=== PATIENT | male | born 1985 | race Caucasian/White ===

== ENCOUNTER 2023-05-07 16:28 | Outpatient (OUT) | payer OTHER, SELFPAY ==
[2023-05-07 17:11] LABS: Basophils Absolute Auto 0.1 10^3/uL (0.0-0.1); Basophils Percent Auto 0.8 % (0.2-2.0); Eosinophils Absolute Auto 0.2 10^3/uL (0.0-0.7); Eosinophils Percent Auto 2.9 % (0.9-7.0); Hematocrit 43.7 % (42.0-54.0); Hemoglobin 15.1 g/dL (14.0-18.0); Immature Granulocytes Abs Auto 0.01 10^3/uL (0.00-0.03); Immature Granulocytes Pct Auto 0.2 % (0.0-0.5); Lymphocytes Absolute Auto 2.4 10^3/uL (1.2-3.8); Lymphocytes Percent Auto 40.4 % (20.5-60.0); Mean Corpuscular HGB Conc 34.6 g/dL (29.9-35.2); Mean Corpuscular Hemoglobin 30.3 pg (25.9-34.0); Mean Corpuscular Volume 87.6 fL (80.0-94.0); Mean Platelet Volume 9.7 fL (9.5-13.5); Monocytes Absolute Auto 0.5 10^3/uL (0.3-0.8); Monocytes Percent Auto 7.7 % (1.7-12.0); Neutrophils Absolute Auto 2.9 10^3/uL (1.4-6.5); Platelet Count 245 10^3/uL (150-450); Red Blood Count 4.99 10^6/uL (4.70-6.10); Red Cell Distribution Width 12.6 % (11.0-15.0)
[2023-05-07 18:29] LABS: Alanine Aminotransferase 48 U/L (16-63); Albumin Level 3.7 g/dL (3.4-5.0); Alkaline Phosphatase 52 U/L (46-116); Anion Gap 11.5; Aspartate Amino Transferase 23 U/L (15-37); BUN Creatinine Ratio 15.2; Bilirubin Total 0.8 mg/dL (0.2-1.0); Calcium 9.1 mg/dL (8.5-10.1); Carbon Dioxide 26.4 mmol/L (21.0-32.0); Chloride 105 mmol/L (98-107); Chol HDL Ratio 3.6; Cholesterol 183 mg/dL (<=200); Estimated GFR (African America >60 (>=60); Estimated GFR (Non-African Ame >60 (>=60); Globulin 3.7 g/dL; Glucose 84 mg/dL (74-106); HDL Cholesterol 51 mg/dL (40-60); LDL Cholesterol Calculated 118.4 mg/dL; Potassium 3.9 mmol/L (3.5-5.1); Sodium 139 mmol/L (136-145); Thyroid Stimulating Hormone 1.581 uIU/mL (0.358-3.740); Total Protein 7.4 g/dL (6.4-8.2); Triglycerides 68 mg/dL (<=150); VLDL CHOLESTEROL 13.6 mg/dL
[2023-05-17 00:07] LABS: Free Testosterone(Direct) 7.4 pg/mL (8.7-25.1); Testosterone 416 ng/dL (264-916)
== END 2023-05-07 16:29 | disposition home or self-care (01) ==
LOC: LAB 16:31
PROVIDERS: Family Provider Family Medicine; PCP Family Medicine; Visit Provider Family Medicine
DX: R53.82 Chronic fatigue, unspecified (principal); E55.9 Vitamin D deficiency, unspecified; Z13.6 Encounter for screening for cardiovascular disorders
CPT/HCPCS: 36415; 80053; 80061; 82306; 82607; 84402; 84403; 84443; 85025

== ENCOUNTER 2024-09-04 12:50 | Outpatient (OUT) | payer OTHER, SELFPAY ==
--- NOTE | 2024-09-04 12:57 | US_ITS ---
[address] [address] Patient Name: JENIFFER CASAS MRN: [id number] date: 1985 Sex: M Assigned Patient Location: Current Patient Location: Accession/Order Number: [id number] Exam Date: 09/04/2024 13:42 Report Date: 09/04/2024 13:51 At the request of: PAIGE MEJÍA Procedure: US scrotum EXAMINATION TYPE: US scrotum grayscale, color Doppler, waveform duplex analysis was performed. DATE OF EXAM ORDERED: 09/04/2024 1:24 PM HISTORY: swelling of left testicle N50.89, COMPARISON: NONE TECHNIQUE: Realtime imaging of the scrotum was performed. Singer scale, color Doppler and spectral Doppler imaging of the testicles was performed. FINDINGS: Testicles: Both testicles demonstrate homogeneous echotexture without intratesticular filling defect. Right measurements: 4.5 x 2.8 x 3.3 cm. Left measurements: 5.4 x 2.6 x 3.1 cm Epididymis: There is an anechoic cyst 3 mm cyst along the left epididymal head Right measurements: 0.72 cm Left measurements: 1.23 cm Hydrocele: Small bilateral hydroceles are present. This is more pronounced on the right the left.. Doppler ultrasound of the testicles: Arterial and venous waveforms are seen within both testicles. No sonographic evidence of testicular ischemia. US/US scrotum IMPRESSION: 1. The testicles are normal in size and echogenicity. No intratesticular lesions. 2. No sonographic evidence of testicular ischemia. 3. Right greater than left. 4. There is a small left epididymal head cyst measuring 3 mm in greatest dimension. Impression dictated by: Jerry Singer M.D. 09/04/2024 1:51 PM Dictation Location: [place] [address] Electronically authenticated by: [id number] Y Date: 09/04/2024 13:51
--- OUTSIDE RECORDS SUMMARY | 2024-09-04 13:08 | XMS_ITS | CCD ---
Author Organization [facility] Care Team Providers Care Manager Primary Care Name Role Phone DONNELL, AFTAB M Unavailable Unavailable DONNELL, AFTAB M Unavailable Unavailable DONNELL, AFTAB M Unavailable Unavailable Donnell, Aftab Unavailable Penny Yuan Unavailable AFTAB JACOBO Primary Care Physician MD Prakash Iraheta Attending Provider Donnell DO Aftab Guy. Primary Care Provider MD Alon Montoya Attending Provider Prakash Iraheta Attending Unavailable Prakash Iraheta Admitting Unavailable Alon Montoya Admitting Unavailable Alon Montoya Attending Unavailable Aftab Jacobo. Primary Care Unavailable CRESCENCIO BERMAN Attending Unavailab le Allergies Allergy Classification Reported Allergen(s) Allergy Type Date of Onset Reaction(s) Facility (20 sources) Sulfamethoxazole / Trimethoprim; Translations: [sulfamethoxazole-tr imethoprim] Drug Allergy rash, Eruption of skin (disorder) [facility] (7 sources) Sulfamethoxazole; Translations: [sulfamethoxazole] Drug Allergy [facility] (7 sources) Trimethoprim; Translations: [trimethoprim] Drug Allergy [facility] (1 source) Sulfamethoxazole / Trimethoprim; Translations: [sulfamethoxazole-tr imethoprim] Drug Allergy [facility] Medications Current Medications Medication Drug Class(es) Dates Sig (Normalized) Sig (Original) amoxicillin 500 mg oral capsule (2 sources) Penicillin-class Antibacterial Start: 06-07-2022 take 1 capsule by mouth every eight hours Amoxicillin 500 MG 1 capsule Orally three times a day for 10 day(s) May, Active amoxicillin 875 mg / clavulanate 125 mg oral tablet (3 sources) Penicillin-class Antibacterial Start: 04-05-2016 take 1 tablet by mouth every twelve hours Amoxicillin-Pot Clavulanate 875-125 MG 1 tablet Orally every 12 hrs for 10 day(s) Apr, Active betamethasone 0.5 mg/ml / clotrimazole 10 mg/ml topical lotion (1 source) Azole Antifungal, Corticosteroid Start: 07-25-2021 Clotrimazole-Betame thasone 1-0.05 % 1 application Externally Twice a day for 14 days Jul, Active 24 hr buPROPion hydrochloride 150 mg extended release oral tablet (7 sources) Aminoketone Start: 11-30-2022 take 1 tablet by mouth every twenty-four hours buPROPion HCl ER (XL) 150 MG 1 tablet in the morning Orally Once a day for 30 days Oct, Active cephalexin 500 mg oral capsule (1 source) Cephalosporin Antibacterial Start: 10-16-2022 End: 10-21-2022 take 1 capsule by mouth twice daily at mealtime Keflex 500 mg Cap 500 mg = 1 cap(s), Oral, BID, start with first meal after procedure, X 5 day(s), # 10 cap(s), Refills(s) 0, Pharmacy: [facility]/pharmacy #[id number], 193, cm, 10/16/22 14:19:00 EDT, Height/Length Dosing, 127, kg, 10/16/22 14:19:00 EDT, Weight Dosing Start Date: 10/16/22 Stop Date: 10/21/22 Status: Ordered cholecalciferol 1.25 mg oral capsule (13 sources) Vitamin D Start: 07-16-2024 End: 08-01-2024 take 1 capsule by mouth every week Cholecalciferol (Vitamin D3) 1,250 mcg (50,000 unit) capsule Active 04070 UNIT PO every week August 01, 2024 9:01am Start: 01-31-2024 End: 07-16-2024 take 1 capsule by mouth every week Cholecalciferol (Vitamin D3) 1,250 mcg (50,000 unit) capsule Discontinued 1250 MCG PO every week January 31, 2024 2:40pm July 16, 2024 7:59am Start: 10-30-2023 End: 01-31-2024 take 1 capsule by mouth every week Cholecalciferol (Vitamin D3) 1,250 mcg (50,000 unit) capsule Discontinued 0 .ROUTE .COMPLEX October 30, 2023 10:46am January 31, 2024 2:41pm TAKE 1 CAPSULE BY MOUTH EVERY WEEK Start: 10-30-2023 End: 01-31-2024 take 1 capsule by mouth every week Cholecalciferol (Vitamin D3) Discontinued 0 .ROUTE .COMPLEX October 30, 2023 10:46am January 31, 2024 2:41pm TAKE 1 CAPSULE BY MOUTH EVERY WEEK Start: 05-17-2023 End: 10-30-2023 take 1 capsule by mouth every week Cholecalciferol (Vitamin D3) 1,250 mcg (50,000 unit) capsule Discontinued 1250 MCG PO every week 08 29May 17, 2023 1:00am October 30, 2023 10:46am DULoxetine 20 mg delayed release oral capsule (3 sources) Serotonin and Norepinephrine Reuptake Inhibitor Start: 08-01-2024 take 1 capsule by mouth once daily Duloxetine 20 mg capsule,delayed release(DR/EC) Active 20 MG PO Daily August 01, 2024 9:01am Start: 04-22-2024 End: 08-01-2024 take 1 capsule by mouth once daily Duloxetine 20 mg capsule,delayed release(DR/EC) Discontinued 0 .ROUTE .COMPLEX April 22, 2024 5:39pm August 01, 2024 9:02am TAKE 1 CAPSULE BY MOUTH EVERY DAY Start: 03-31-2024 End: 04-22-2024 take 1 capsule by mouth once daily Duloxetine 20 mg capsule,delayed release(DR/EC) Discontinued 20 MG PO Daily March 31, 2024 1:00am April 22, 2024 5:39pm meloxicam 15 mg oral tablet (1 source) Nonsteroidal Anti-inflammatory Drug take 1 tablet by mouth every twenty-four hours Meloxicam 15 MG 1 tablet Orally Once a day Active Omeprazole (18 sources) Proton Pump Inhibitor Start: 023 omeprazole Oral, Daily, Refills(s) 0 Start Date: 10/16/22 Status: Ordered take 1 tablet by mouth once conchis y PriLOSEC OTC 20 MG 1 tablet 30 minutes before morning meal Orally Once a day Active take 1 tablet by mouth once conchis y PriLOSEC OTC 20 MG 1 tablet 30 minutes before morning meal Orally Once a day Active Omeprazole Magnesium (Prilosec Otc) 20 mg tablet,delayed release (DR/EC) (6 sources) Start: 05-29-2023 take 1 tablet by mouth once daily Omeprazole Magnesium (Prilosec Otc) 20 mg tablet,delayed release (DR/EC) Active 20 MG PO Daily May 29, 2023 1:00am Sudafed Cold/Cough (1 source) Sudafed Cold/Cou gh Active Completed/Discontinued Medications Medication Drug Class(es) Dates Sig (Normalized) Sig (Original) escitalopram 10 mg oral tablet (20 sources) Serotonin Reuptake Inhibitor Start: 01-31-2024 End: 08-01-2024 take 1 tablet by mouth once daily Escitalopram Oxalate 10 mg tablet Discontinued 10 MG PO Daily January 31, 2024 2:41pm August 01, 2024 9:02am Start: 01-04-2024 End: 01-31-2024 take 1 tablet by mouth once daily Escitalopram Oxalate 10 mg tablet Discontinued 0 .ROUTE .COMPLEX January 04, 2024 11:08am January 31, 2024 2:41pm TAKE 1 TABLET BY MOUTH EVERY DAY Start: 08-29-2023 End: 01-04-2024 take 1 tablet by mouth once daily Escitalopram Oxalate 10 mg tablet Discontinued 10 MG PO Daily August 29, 2023 12:00am January 04, 2024 11:08am Start: 05-29-2023 End: 08-29-2023 take 1 tablet by mouth once daily Escitalopram Oxalate 20 mg tablet Discontinued 20 MG PO Daily May 29, 2023 2:53pm August 29, 2023 2:27pm Start: 01-05-2023 escitalopram 5 mg oral tablet Refills(s) 0 Start Date: 01/05/23 Status: Ordered Start: 11-02-2022 take 1 tablet by ronald th every twenty-four hours Escitalopram Oxalate 10 MG 1 tablet Orally Once a day for 30 days Oct, Active Start: 11-02-2022 take 1 tablet by ronald th every twenty-four hours Escitalopram Oxalate 5 MG 1 tablet Orally Once a day for 30 days Oct, Active take 1 tablet by ronald th every twenty-four hours Escitalopram Oxalate 20 MG 1 tablet Orally Once a day for 30 days Active Triamcinolone (20 sources) Corticosteroid Start: 10-27-2019 Kenalog -40 mg Sep, 80 mg Start: 11-21-2018 Kenalog -40 mg Oct, 80 mg Start: 09-24-2018 KENALOG - 10 m g Aug, 80 mg Problems Active Problems Problem Classification Problem Date Documented Date Episodic/Chronic Contraceptive and procreative management (1 source) Contraception status; Translations: [Encounter for other general counseling and advice on contraception] Onset: 10-16-2022 Episodic Esophageal disorders (11 sources) Gastroesophageal reflux disease without esophagitis; Translations: [Gastro-esophageal reflux disease without esophagitis] 07-19-2023 Chronic Immunizations and screening for infectious disease (1 source) Contact with and (suspected) exposure to other viral communicable diseases Episodic Malaise and fatigue (4 sources) Fatigue; Translations: [Chronic fatigue, unspecified] Chronic Miscellaneous mental health disorders (12 sources) 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; Translations: [Excessive sexual drive] Chronic Mood disorders (20 sources) Reactive depression (situational); Translations: [Major depressive disorder, single episode, unspecified] Chronic Nutritional deficiencies (10 sources) Vitamin D deficiency; Translations: [Vitamin D deficiency, unspecified] Chronic Other disorders of stomach and duodenum (3 sources) Indigestion 10-16-2022 Episodic Other nervous system disorders (5 sources) Circadian rhythm sleep disorder of shift work type; Translations: [Circadian rhythm sleep disorder, shift work type] 07-19-2023 Chronic Other nervous system disorders (4 sources) Circadian rhythm sleep disorder, shift work type; Translations: [Circadian rhythm sleep disorder, shift work type] 07-19-2023 Chronic Other nutritional; endocrine; and metabolic disorders (1 source) Body mass index 30+ - obesity 07-19-2023 Chronic Other upper respiratory infections (4 sources) Acute sinusitis, unspecified; Translations: [Streptococcal pharyngitis] Onset: 02-21-2021 Resolved: 02-21-2021 Episodic Residual codes; unclassified (7 sources) Sleep apnea, unspecified; Translations: [Unspecified sleep apnea] Onset: 07-26-2023 07-19-2023 Chronic Unclassified (5 sources) Encounter for screening for diabetes mellitus; Translations: [Encounter for screening for cardiovascular disorders] Onset: 01-23-2017 Episodic Unclassified (3 sources) Patient encounter status 10-16-2022 Unclassified (11 sources) Body mass index 30+ - obesity; Translations: [Body mass index (BMI) greater than 35] 07-19-2023 Unclassified (1 source) Encounter for other general counseling and advice on contraception; Translations: [Encounter for other general counseling and advice on contraception] Onset: 12-22-2022 Past or Other Problems Problem Classification Problem Date Documented Da te Episodic/Chronic Mycoses (1 source) Tinea pedis Onset: 07-25-2021 Resolved: 07-25-2021 Episodic Results Test Name Value Interpretation Reference Range Facility SPERM ANALYSISOrdered By: Owen Retana on 06-28-2023 Body temperature 75.2 [degF] Normal 20 - 37 DegC [facility] Inga/Transport Prob No Problems (06/28/23 8:00 AM) Normal [facility] Collect. Meth Masturbation (06/28/23 8:00 AM) Normal [facility] Days Abstained 4 day(s) Normal 2 - 5 day(s) [facility] Post Vas Screen No Sperm Seen 1 (06/28/23 8:00 AM) Normal <=0 [facility] Comment on above: Interpretive Data: A Concentration Technique is used to confirm any semen which is azospermic (no sperm seen). Spec. Container Steril Container (06/28/23 8:00 AM) Normal [facility] SS Free testosterone measuremen t by LC-MS/MSon 05-07-2023 Testosterone Free [Mass/Vol] 7.4 pg/mL 8.7-25.1 [facility] Comment on above: Performed at: [facility] [address] [address] [id number] Director: Daniel Chinchilla PhD, Phone: [phone] at: [facility] [employer] [id number] Director: Zoltan Castro MD, Phone: [phone] No Panel Informationon 05-07 Testosterone Level 416 ng/dL [id number] [facility] Comment on above: Adult male reference interval is based on a population ofhealthy nonobese males (BMI <30) between 19 and 39 yearsold. [email or web address] Gallego.al. JCEM 2017,102;[id number]. PMID:[id number]. Imer 12-22-2022 L -- Specimen: [id number] Received: 12/22/22 Status: MAKENNA Chiangkarina Num: [id number] Spec Type: Surgical Subm Dr: Prakash Iraheta MD Tissues: A VAS DEFERENS - sterilization (LT VAS) B VAS DEFERENS - sterilization (RT VAS) Procedures: Donavan BINGHAM/Eliana L2/2 -- Age/ Patient Sex Location Account Attending Physician -- Raúl Bullock/Malena SANTIAGO [id number] Prakash Iraheta MD -- SPEC NUM: [id number] RECD: 12/22/22 STATUS: MAKENNA MAGAÑA NUM: [id number] INGA: 12/22/22 [facility] DR: Prakash Iraheta MD ENTERED: 12/22/[address] [facility] [address]: [facility] SPEC TYPE: Surgical DEPT: S ENTERED BY: [id number] RECV BY: [id number] ORDERED: HE/2, Gross/Micro L2/2 ORDERED: HE/2, Gross/Micro L2/2 Pathological Diagnosis A. Left vas deferens segment, vasectomy: - Segmental portion of vas deferens with complete cross sections, and without any other specific change observed B. Right vas deferens segment, vasectomy: - Segmental portion of vas deferens with complete cross sections, and without any other specific change observed Clinical Information Sterilization Gross Description A. Received in formalin labeled with the patient's name, date of and left vas deferens segment is a 1.5 x 0.3 cm ren-mendoza tubular tissue with a pinpoint lumen on cut section. Entirely submitted in one cassette labeled A1. B. Received in formalin labeled with the patient's name, date of and right vas deferens segment is a 0.7 x 0.2 cm ren-pink tubular tissue with a pinpoint lumen on cut section. Entirely submitted in one cassette labeled B1. -- Specimen: [id number] Received: 12/22/22 Status: MAKENNA Chiangkarina Num: [id number] Spec Type: Surgical Subm Dr: Prakash Iraheta MD Tissues: A VAS DEFERENS - sterilization (LT VAS) B VAS DEFERENS - sterilization (RT VAS) Procedures: Donavan BINGHAM/Eliana L2/2 -- Patient: Raúl Bullock [id number] (Continued) -- Specimen: [id number] Received: 12/22/22 (Continued) Signed (signatu re on file) Luis Fernando Woody MD 12/25/22 1505 -- Specimen: [id number] Received: 12/22/22 Status: MAKENNA Magaña Num: [id number] Spec Type: Surgical Subm Dr: Prakash Iraheta MD Tissues: A VAS DEFERENS - sterilization (LT VAS) B VAS DEFERENS - sterilization (RT VAS) Procedures: Donavan BINGHAM/Eliana L2/2 -- Patient: Raúl Bullock [id number] (Continued) -- Specimen: [id number] Received: 12/22/22 (Continued) Microscopic Description A. One H E slide reviewed. The microscopic examination confirms the diagnosis. B. One H E slide reviewed. The microscopic examination confirms the diagnosis. CPT Codes 73791l8 -- -- Specimen: [id number] Received: 12/22/22 Status: MAKENNA Magaña Num: [id number] Spec Type: Surgical Subm Dr: Prakash Iraheta MD Tissues: A VAS DEFERENS - sterilization (LT VAS) B VAS DEFERENS - sterilization (RT VAS) Procedures: HE/2, Gross/Micro L2/2 -- Patient: Raúl Blulock [id number] (Continued) -- Signed (signatu re on file) Chin-Dilan Woody MD 12/25/22 1505 Normal [facility] COVID/FLU/RSV RT-PCRon 06-07 SARS-CoV-2 (COVID-19) RNA SILVANA+probe Ql (Unsp spec) Negative [facility] Other COVID/FLU/RSV RT-PCR Negative Nort [facility] Other [facility] Strepon 06-07-2022 S. pyogenes Org specific cx Ql (Throat) Positive [facility] Other Quick Strep [facility] Other GLUCOSE BLOODon 01-23-2017 Glucose mass conc 101 mg/dL Normal 74-106 [facility] Comment on above: Performed By: #### G JB ####[facility] [id number] Vital Signs Date Time Vital Sign Value Performing Clinician Facility 08-01-2024 09:00-0400 Body height 193.04 cm [facility] 08-01-2024 09:00-0400 Body mass index (BMI) [Ratio] 36.5 kg/m2 [facility] 08-01-2024 09:00-0400 Body temperature 97.7 [degF] [facility] 08-01-2024 09:00-0400 Body weight 136.07 kg [facility] 08-01-2024 09:00-0400 Diastolic blood pressure 72 mm[Hg] [facility] 08-01-2024 09:00-0400 Heart rate 65 /min [facility] 08-01-2024 09:00-0400 Respiratory rate 18 /min [facility] 08-01-2024 09:00-0400 SaO2% (BldA) [Mass fraction] 97 % [facility] 08-01-2024 09:00-0400 Systolic blood pressure 118 mm[Hg] [facility] 02-01-2024 08:29-0400 Body height 193.04 cm [facility] 02-01-2024 08:29-0400 Body mass index (BMI) [Ratio] 36.6 kg/m2 [facility] 02-01-2024 08:29-0400 Body temperature 98.2 [degF] [facility] 02-01-2024 08:29-0400 Body weight 136.53 kg [facility] 02-01-2024 08:29-0400 Diastolic blood pressure 78 mm[Hg] [facility] 02-01-2024 08:29-0400 Heart rate 72 /min [facility] 02-01-2024 08:29-0400 SaO2% (BldA) [Mass fraction] 98 % [facility] 02-01-2024 08:29-0400 Systolic blood pressure 110 mm[Hg] [facility] 11-29-2023 15:59-0400 Body height 193.04 cm [facility] 11-29-2023 15:59-0400 Body mass index (BMI) [Ratio] 36.1 kg/m2 [facility] 11-29-2023 15:59-0400 Body weight 134.71 kg [facility] 11-29-2023 15:59-0400 Diastolic blood pressure 73 mm[Hg] [facility] 11-29-2023 15:59-0400 Heart rate 65 /min [facility] 11-29-2023 15:59-0400 SaO2% (BldA) [Mass fraction] 97 % [facility] 11-29-2023 15:59-0400 Systolic blood pressure 112 mm[Hg] [facility] 08-03-2023 08:56-0400 Body height 193.04 cm DO Aftab Donnell Work Phone: [facility] 08-03-2023 08:56-0400 Body mass index (BMI) [Ratio] 34.7 kg/m2 DO Aftab Donnell Work Phone: [facility] 08-03-2023 08:56-0400 Body temperature 97 [degF] DO Aftab Donnell Work Phone: [facility] 08-03-2023 08:56-0400 Body weight 129.27 kg DO Aftab Donnell Work Phone: [facility] 08-03-2023 08:56-0400 Diastolic blood pressure 70 mm[Hg] DO Aftab Donnell Work Phone: [facility] 08-03-2023 08:56-0400 Heart rate 71 /min DO Aftab Donnell Work Phone: [facility] 08-03-2023 08:56-0400 Respiratory rate 16 /min DO Aftab Donnell Work Phone: [facility] 08-03-2023 08:56-0400 SaO2% (BldA) [Mass fraction] 98 % DO Aftab Donnell Work Phone: [facility] 08-03-2023 08:56-0400 Systolic blood pressure 110 mm[Hg] DO Aftab Donnell Work Phone: [facility] 07-19-2023 15:44-0400 Body mass index (BMI) [Ratio] 35.2 kg/m2 [facility] 07-19-2023 15:44-0400 Body weight 131.08 kg [facility] 07-19-2023 15:44-0400 Diastolic blood pressure 75 mm[Hg] [facility] 07-19-2023 15:44-0400 Heart rate 68 /min [facility] 07-19-2023 15:44-0400 SaO2% (BldA) [Mass fraction] 99 % [facility] 07-19-2023 15:44-0400 Systolic blood pressure 110 mm[Hg] [facility] 07-19-2023 15:35-0400 Body height 193.04 cm [facility] 05-04-2023 10:45-0500 Body height 193.04 cm Aftab Donnell Other [facility] 05-04-2023 10:45-0500 Body mass index (BMI) [Ratio] 35.42 kg/m2 Aftab Donnell Other [facility] Other 05-04-2023 10:45-0500 Body temperature 97.6 [degF] Aftab Donnell Other [facility] Other 05-04-2023 10:45-0500 Body weight 132 kg Aftab Donnell Other [facility] Other 05-04-2023 10:45-0500 Body weight 131.99 kg [facility] 05-04-2023 10:45-0500 Diastolic blood pressure 68 mm[Hg] Aftab Donnell Other [facility] 05-04-2023 10:45-0500 Respiratory rate 20 /min Aftab Donnell Other [facility] Other 05-04-2023 10:45-0500 SaO2% (BldA) [Mass fraction] 97 % Aftab Donnell Other [facility] Other 05-04-2023 10:45-0500 Systolic blood pressure 102 mm[Hg] Aftab Donnell Other [facility] 11-30-2022 14:15-0400 Body height 193.04 cm Aftab Donnell Other [facility] Other 11-30-2022 14:15-0400 Body mass index (BMI) [Ratio] 34.08 kg/m2 Aftab Donnell Other [facility] Other 11-30-2022 14:15-0400 Body temperature 97.5 [degF] Aftab Donnell Other [facility] Other 11-30-2022 14:15-0400 Body weight 127.01 kg Aftab Donnell Other [facility] Other 11-30-2022 14:15-0400 Diastolic blood pressure 82 mm[Hg] Aftab Donnell Other [facility] Other 11-30-2022 14:15-0400 Respiratory rate 20 /min Aftab Donnell Other [facility] Other 11-30-2022 14:15-0400 SaO2% (BldA) [Mass fraction] 97 % Aftab Donnell Other [facility] Other 11-30-2022 14:15-0400 Systolic blood pressure 102 mm[Hg] Aftab Donnell Other [facility] Other 11-02-2022 14:15-0400 Body height 193.04 cm Aftab Donnell Other [facility] Other 11-02-2022 14:15-0400 Body mass index (BMI) [Ratio] 33.47 kg/m2 Aftab Donnell Other [facility] Other 11-02-2022 14:15-0400 Body temperature 97.6 [degF] Aftab Donnell Other [facility] Other 11-02-2022 14:15-0400 Body weight 124.74 kg Aftab Donnell Other [facility] Other 11-02-2022 14:15-0400 Diastolic blood pressure 58 mm[Hg] Aftab Donnell Other [facility] Other 11-02-2022 14:15-0400 Respiratory rate 20 /min Aftab Donnell Other [facility] Other 11-02-2022 14:15-0400 SaO2% (BldA) [Mass fraction] 97 % Aftab Donnell Other [facility] Other 11-02-2022 14:15-0400 Systolic blood pressure 98 mm[Hg] Aftab Donnell Other [facility] Other 10-16-2022 14:17-0400 Blood Pressure Location Prakash IRAHETA [facility] 10-16-2022 14:17-0400 Diastolic blood pressure 80 mm[Hg] Prakash IRAHETA [facility] 10-16-2022 14:17-0400 Heart rate 82 /min Prakash IRAHETA [facility] 10-16-2022 14:17-0400 Respiratory rate 16 /min Prakash IRAHETA [facility] 10-16-2022 14:17-0400 Systolic blood pressure 130 mm[Hg] Prakash IRAHETA [facility] 06-07-2022 17:30-0500 Body height 193.04 cm Penny Nicholsonmond Other [facility] Other 06-07-2022 17:30-0500 Body mass index (BMI) [Ratio] 34.08 kg/m2 Epnny Lissy Other [facility] Other 06-07-2022 17:30-0500 Body temperature 98.3 [degF] Penny Lissy Other [facility] Other 06-07-2022 17:30-0500 Body weight 127.01 kg Penny Nicholsonmond Other [facility] Other 06-07-2022 17:30-0500 Respiratory rate 18 /min Penny Nicholsonmond Other [facility] Other 06-07-2022 17:30-0500 SaO2% (BldA) [Mass fraction] 99 % Penny Lissy Other [facility] Other 02-27-2022 17:45-0500 Body height 193.04 cm Aftab Donnell Other [facility] Other 02-27-2022 17:45-0500 Body mass index (BMI) [Ratio] 32.98 kg/m2 Aftab Donnell Other [facility] Other 02-27-2022 17:45-0500 Body temperature 98.1 [degF] Aftab Donnell Other [facility] Other 02-27-2022 17:45-0500 Body weight 122.93 kg Aftab Donnell Other [facility] Other 02-27-2022 17:45-0500 Diastolic blood pressure 72 mm[Hg] Aftab Donnell Other [facility] Other 02-27-2022 17:45-0500 Respiratory rate 20 /min Aftab Donnell Other [facility] Other 02-27-2022 17:45-0500 SaO2% (BldA) [Mass fraction] 99 % Aftab Donnell Other [facility] Other 02-27-2022 17:45-0500 Systolic blood pressure 110 mm[Hg] Aftab Donnell Other [facility] Other 07-25-2021 17:00-0400 Body height 193.04 cm Aftab Donnell Other [facility] Other 07-25-2021 17:00-0400 Body mass index (BMI) [Ratio] 34.08 kg/m2 Aftab Donnell Other [facility] Other 07-25-2021 17:00-0400 Body temperature 98 [degF] Aftab Donnell Other [facility] Other 07-25-2021 17:00-0400 Body weight 127.01 kg Aftab Donnell Other [facility] Other 07-25-2021 17:00-0400 Diastolic blood pressure 72 mm[Hg] Aftab Donnell Other [facility] Other 07-25-2021 17:00-0400 Respiratory rate 20 /min Aftab Donnell Other [facility] Other 07-25-2021 17:00-0400 SaO2% (BldA) [Mass fraction] 98 % Aftab Donnell Other [facility] Other 07-25-2021 17:00-0400 Systolic blood pressure 122 mm[Hg] Aftab Donnell Other [facility] Other 02-21-2021 14:30-0500 Body height 193.04 cm Aftab Donnell Other [facility] Other 02-21-2021 14:30-0500 Body mass index (BMI) [Ratio] 34.32 kg/m2 Aftab Donnell Other [facility] Other 02-21-2021 14:30-0500 Body temperature 98.9 [degF] Aftab Donnell Other [facility] Other 02-21-2021 14:30-0500 Body weight 127.92 kg Aftab Donnell Other [facility] Other 02-21-2021 14:30-0500 Diastolic blood pressure 64 mm[Hg] Aftab Donnell Other [facility] Other 02-21-2021 14:30-0500 Respiratory rate 20 /min Aftab Donnell Other [facility] Other 02-21-2021 14:30-0500 SaO2% (BldA) [Mass fraction] 99 % Aftab Donnell Other [facility] Other 02-21-2021 14:30-0500 Systolic blood pressure 98 mm[Hg] Aftab Donnell Other [employer] Other Encounters Encounter Date Encounter Type Care Provider Facility Start: 09-04-2024 ambulatory CRESCENCIO BERMAN Facility:[facility] Start: 08-01-2024 End: 08-01-2024 ambulatory [facility] Work Phone: Start: 08-01-2024 End: 08-01-2024 Patient encounter procedure [facility] Work Phone: Start: 02-01-2024 End: 02-01-2024 ambulatory [facility] Work Phone: Start: 02-01-2024 End: 02-01-2024 Patient encounter procedure [facility] Work Phone: Start: 11-29-2023 End: 11-29-2023 ambulatory [facility] Work Phone: Start: 11-29-2023 End: 11-29-2023 Patient encounter procedure [facility] Work Phone: Start: 08-03-2023 End: 08-03-2023 ambulatory DO Aftab M. Donnell Work Phone: [facility] Work Phone: Start: 08-03-2023 End: 08-03-2023 Patient encounter procedure DO Aftab Donnell Work Phone: [facility] Work Phone: Start: 07-31-2023 Non-patient / Non-visit DO Set h Donnell Work Phone: [facility] Work Phone: Start: 07-26-2023 End: 07-26-2023 ambulatory Alon Montoya Facility:[facility] Start: 07-26-2023 End: 07-26-2023 ambulatory DO Aftab M. Donnell Work Phone: [facility] Work Phone: Start: 07-26-2023 End: 07-26-2023 Patient encounter procedure DO Aftab Donnell Work Phone: [facility] Work Phone: Start: 07-19-2023 End: 07-19-2023 ambulatory [facility] Work Phone: Start: 07-19-2023 End: 07-19-2023 Patient encounter procedure [facility] Work Phone: Start: 06-28-2023 End: 06-28-2023 Lab Drop off Prakash Madison MODESTA [facility] Start: 05-29-2023 Non-patient / Non-visit [facility] Work Phone: Start: 05-14-2023 End: 05-14-2023 ambulatory Aftab Donnell Other [employer] [facility] Other Start: 05-14-2023 Telephone encounter Aftab Donnell [facility] Start: 05-07-2023 Non-patient / Non-visit [facility] Work Phone: Start: 05-04-2023 End: 05-04-2023 ambulatory Aftab Donnell Other [employer] Other Start: 05-04-2023 Office outpatient vi sit 25 minutes Aftab Donnell [facility] Start: 05-04-2023 Telephone encounter Aftab Donnell [facility] Start: 05-04-2023 End: 05-04-2023 Patient encounter procedure [facility] Start: 04-24-2023 End: 04-24-2023 ambulatory Aftab Donnell Other [employer] Other Start: 04-24-2023 Telephone encounter Aftab Donnell [facility] Start: 04-23-2023 End: 04-23-2023 Lab Drop off Prakash IRAHETA [facility] Start: 03-29-2023 End: 03-29-2023 ambulatory Aftab Donnell Other [employer] Other Start: 03-29-2023 Telephone encounter Aftab Donnell [facility] Start: 01-30-2023 End: 01-30-2023 ambulatory Aftab Donnell Other [employer] Other Start: 01-30-2023 Telephone encounter Atfab Donnell [facility] Start: 01-08-2023 End: 01-08-2023 ambulatory Aftab Donnell Other [employer] Other Start: 01-08-2023 Telephone encounter Aftab Donnell [facility] Start: 12-25-2022 End: 12-25-2022 ambulatory Aftab Donnell Other [employer] Other Start: 12-25-2022 Telephone encounter Aftab Donnell [facility] Start: 12-22-2022 End: 12-22-2022 ambulatory Prakash Iraheta Facility:[facility] Start: 12-22-2022 End: 12-22-2022 ambulatory MD Prakash Iraheta Work Phone: [facility] Work Phone: Start: 12-22-2022 End: 12-22-2022 Departed Referred MD Prakash Iraheta Work Phone: [facility] [place] Work Phone: Start: 12-12-2022 End: 12-12-2022 ambulatory Aftab Donnell Other [employer] Other Start: 12-12-2022 Telephone encounter Aftab Donnell [facility] Start: 11-30-2022 End: 11-30-2022 ambulatory Aftab Donnell Other [employer] Other Start: 11-30-2022 Office outpatient vi sit 15 minutes Aftab Donnell [facility] Start: 11-27-2022 End: 11-27-2022 ambulatory Aftab Donnell Other [employer] Other Start: 11-27-2022 Telephone encounter Aftab Donnell [facility] Start: 11-02-2022 End: 11-02-2022 ambulatory Aftab Donnell Other [employer] Other Start: 11-02-2022 Office outpatient vi sit 15 minutes Aftab Donnell [facility] Start: 10-16-2022 End: 10-16-2022 Patient encounter procedure Prakash IRAHETA [facility] Start: 06-07-2022 End: 06-07-2022 ambulatory Penny Yuan Other [employer] Other Start: 06-07-2022 Office outpatient vi sit 25 minutes Penny Lissy [facility] Start: 06-07-2022 Telephone encounter Aftab Donnell [facility] Start: 02-27-2022 End: 02-27-2022 ambulatory Aftab Donnell Other [employer] Other Start: 02-27-2022 Encounter for genera l adult medical examination without abnormal findings Aftab Donnell [facility] Start: 02-27-2022 Periodic preventive med est patient 18-39 yrs Aftab Donnell [facility] Start: 07-25-2021 End: 07-25-2021 ambulatory Aftab Donnell Other [employer] Other Start: 07-25-2021 Office outpatient vi sit 15 minutes Aftab Donnell [facility] Start: 02-21-2021 End: 02-21-2021 ambulatory Aftab Donnell Other [employer] Other Start: 02-21-2021 Encounter for genera l adult medical examination with abnormal findings Aftab Donnell [facility] Start: 02-21-2021 Office outpatient vi sit 15 minutes Aftab Donnell [facility] Start: 01-23-2017 End: 01-24-2017 Ambulatory AFTAB M DONNELL Facility: Procedures Date Procedure Procedure Detail Performing Clinician Start: 12-22-2022 Vasectomy Prakash BARBA H/O: vasectomy S/P vasectomy Prakash PLASCENCIA None (qualifier value) Estelle IRAHETA Immunizations Immunization Date Immunization Notes Care Provider Robert frank 09-27-2018 tetanus toxoid, reduced diphtheria toxoid, and acellular pertussis vaccine, adsorbed Aftab Donnell Other [facility] NEGATED: Highlighted row has not occurred!10-07-2018 influenza, injectable, quadrivalent, contains preservative Patient Objection Aftab Donnell Other [employer] Other NEGATED: Highlighted row has not occurred!02-08-2017 influenza, injectable, quadrivalent, contains preservative Patient Objection Aftab Donnell Other [employer] Other NEGATED: Highlighted row has not occurred!01-22-2017 influenza, injectable, quadrivalent, contains preservative Patient Objection Aftab Donnell Other [employer] Other NEGATED: Highlighted row has not occurred!03-02-2016 influenza, injectable, quadrivalent, contains preservative Patient Objection Aftab Donnell Other [employer] Other Payers Date Payer Category Payer Self-pay [id number] 2022 Unknown [id number] 1984 Unknown [id number] 1959 Unknown [id number] Unknown [id number] Unknown [id number] Social History Date Type Detail Facility Unknown if ever smoked [employer] Other Sex Assigned At [facility] Start: 10-16-2022 End: 08-01-2024 Tobacco smoking status Never smoked tobacco (finding) [facility] Tobacco smoking status Never [facility] Start: 1985 Sex Assigned At Male F [facility] Start: 08-01-2024 Sex Male (finding) [facility] Functional Status Date Assessment Result Facility 10-16-2022 Functional Status N/A [facility] Clinical Notes 03-02-2020 to 06-28-2023 Note Date & Type Note Facility 06-28-2023 Evaluation + Plan note Diagnostic Tests PendingSperm Morphology 06/28/23 [facility] 05-04-2023 Evaluation note Encounter Date Diagnosis Assessment Notes May, Reactive depression (ICD-10 - F32.9) Lengthy discussion with patient today that I think going up to the 20 mg would certainly be warranted. He may just need this higher dose. Certainly call with results. May, Chronic fatigue (ICD-10 - R53.82) We will pursue blood work and call him with the results of this. I do not expect to see any abnormalities , but it is quite reasonable to check. I also think we should really have him see sleep medicine, as with his snoring, I think sleep apnea may be playing a large role in his overall concerns/cond ition. May, Vitamin D deficiency (ICD-10 - E55.9) May, Encounter for screening for cardiovascular disorders (ICD-10 - Z13.6) [employer] Other 01-23-2024 Evaluation note* Encounter Date Diagnosis Assessment Notes Treatment Notes Treatment Clinical Notes Apr, Reactive depression (ICD-10 - F32.9) [employer] Other 01-22-2024 Evaluation + Plan note Diagnostic Tests Pending * Semen Analysis Post Vasectomy 04/23/23 * Sperm Morphology 04/23/23 [facility]12-28-2023 Evaluation note* Encounter Date Diagnosis Assessment Notes Treatment Notes Treatment Clinical Notes Mar, Acute sinusitis, unspecified (ICD-10 - J01.90) [employer] Other 10-31-2023 Evaluation note* Encounter Date Diagnosis Assessment Notes Treatment Notes Treatment Clinical Notes Dec, Reactive depression (ICD-10 - F32.9) [employer] Other 10-09-2023 Evaluation note* Encounter Date Diagnosis Assessment Notes Treatment Notes Treatment Clinical Notes Dec, Reactive depression (ICD-10 - F32.9) [employer] Other 09-25-2023 Evaluation note* Encounter Date Diagnosis Assessment Notes Treatment Notes Treatment Clinical Notes Dec, Reactive depression (ICD-10 - F32.9) [employer] Other 09-12-2023 Evaluation note* Encounter Date Diagnosis Assessment Notes Treatment Notes Treatment Clinical Notes Dec, Reactive depression (ICD-10 - F32.9) [employer] Other 08-31-2023 Evaluation note* Encounter Date Diagnosis Assessment Notes Treatment Notes Treatment Clinical Notes Oct, Reactive depression (ICD-10 - F32.9) Oct, Excessive sexual drive (ICD-10 - F52.8) Lengthy discussion with patient and today that I am really not happy with the fact that his libido dropped to such a low level from the rather elevated level. Therefore I would like to try different medication, Wellbutrin, which hopefully will allow some reasonable level of libido, but also help with his anger issues. He voices agreement and understanding and he will call with results. [employer] Other 08-28-2023 Evaluation note* Encounter Date Diagnosis Assessment Notes Treatment Notes Treatment Clinical Notes Oct, Reactive depression (ICD-10 - F32.9) [employer] Other 08-03-2023 Evaluation note* Encounter Date Diagnosis Assessment Notes Treatment Notes Treatment Clinical Notes Oct, Reactive depression (ICD-10 - F32.9) eRX sent. Pt to call with any side effects - will recheck in 4 weeks. Oct, Male with excessive sexual desire (ICD-10 - F52.8) Discussed with patient that the SSRIs do tend to reduce libido. My hope with this, of course, is to merely blunt his libido somewhat and not completely stop it. He voices agreement. [employer] Other 07-17-2023 Hospital Discharge instructions Patient Education 10/16/2022 14:50:42 Contraception Choices, Yovt-hv-Jiwv Contraception Choices Contraception refers to things you do or use to prevent . It is also called control.There are several methods of control. Talk to your doctor about the best method for you. Hormonal control This kind of control uses hormones. Here are some types of hormonal control: A tube that is put under the skin of your arm (implant). The tube can stay in for up to 3 years. Shots you get every 3 months. Pills you take every day. A patch you change 1 time each week for 3 weeks. After that, the patch is taken off for 1 week. A ring you put in the vagina. The ring is left in for 3 weeks. Then it is taken out of the vagina for 1 week. Then a new ring is put in. Pills you take after unprotected sex. These are called emergency control pills. Barrier control Here are some types of barrier control: A thin covering that is put on the penis before sex (male condom). The covering is thrown away after sex. A soft, loose covering that is put in the vagina before sex (female condom). The covering is thrownaway after sex. A rubber bowl that sits over the cervix (diaphragm). The bowl must be made for you. The bowl is putinto the vagina before sex. The bowl is left in for 6 8 hours after sex. It is taken out within 24 hours. A small, soft cup that fits over the cervix (cervical cap). The cup must be made for you. The cup should be left in for 6 8 hours after sex. It is taken out within 48 hours. A sponge that is put into the vagina before sex. It must be left in for at least 6 hours after sex.It must be taken out within 30 hours and thrown away. A chemical that kills or stops sperm from getting into the womb (uterus). This chemical is called aspermicide. It may be a pill, cream, jelly, or foam to put in the vagina. The chemical should be used at least 10 15 minutes before sex. IUD control IUD means intrauterine device. It is put inside the womb. There are two kinds: Hormone IUD. This kind can stay in the womb for 3 5 years. Copper IUD. This kind can stay in the womb for 10 years. Permanent control Here are some types of permanent control: Surgery to block the fallopian tubes. Having an insert put into each fallopian tube. This method takes 3 months to work. Other forms of control must be used for 3 months. Surgery to tie off the tubes that carry sperm in men (vasectomy). This method takes 3 months to work. Other forms of control must be used for 3 months. Natural planning control Here are some types of natural planning control: Not having sex on the days the woman could get . Using a calendar: ?To keep track of the length of each menstrual cycle. ?To find out what days can happen. ?To plan to not have sex on days when can happen. Watching for signs of ovulation and not having sex during this time. One way the woman can check for ovulation is to check her temperature. Waiting to have sex until after ovulation. Where to find more information Centers for Disease Control and Prevention: www.cdc.gov Summary Contraception, also called control, refers to things you do or use to prevent . Hormonal methods of control include implants, injections, pills, patches, vaginal rings, and emergency control pills. Barrier methods of control can include male condoms, female condoms, diaphragms, cervical caps, sponges, and spermicides. There are two types of IUD (intrauterine device) control. An IUD can be put in a woman's wombto prevent for several years. Permanent control can be done through a procedure for males, females, or both. Natural planning means not having sex when the woman could get . This information is not intended to replace advice given to you by your health care provider. Make sure you discuss any questions you have with your health care provider. Document Revised: 08/23/2020 Document Reviewed: 08/23/2020 [employer] Patient Education 2022 [employer]. 10/16/2022 14:50:41 Vasectomy Vasectomy Vasectomy is a procedure in which the vas deferens is cut and then tied or burned (cauterized). Thevas deferens is a tube that carries sperm from the testicle to the part of the body that drains urine from the bladder (urethra). This procedure blocks sperm from going through the vas deferens and penis during ejaculation. This ensures that sperm does not go into the vagina during sex. Vasectomy does not affect sexual desire or performance and does not prevent sexually transmitted infections. Vasectomy is considered a permanent and very effective form of control (contraception). The decision to have a vasectomy should not be made during a stressful time, such as after the loss of a or a divorce. You and your partner should decide on whether to have a vasectomy when you are sure that you do not want children in the future. Tell a health care provider about: Any allergies you have. All medicines you are taking, including vitamins, herbs, eye drops, creams, and iyjw-ndc-qfypwge medicines. Any problems you or family members have had with anesthetic medicines. Any blood disorders you have. Any surgeries you have had. Any medical conditions you have. What are the risks? Generally, this is a safe procedure. However, problems may occur, including: Infection. Bleeding and swelling of the scrotum. The scrotum is the sac that contains the testicles, blood vessels, and structures that help deliver sperm and semen. Allergic reactions to medicines. Failure of the procedure to prevent . There is a very small chance that the tied or cauterized ends of the vas deferens may reconnect (recanalization). If this happens, you could still make a woman . Pain in the scrotum that continues after you heal from the procedure. What happens before the procedure? Medicines Ask your health care provider about: ?Changing or stopping your regular medicines. This is especially important if you are taking diabetes medicines or blood thinners. ?Taking medicines such as aspirin and ibuprofen. These medicines can thin your blood. Do not take these medicines unless your health care provider tells you to take them. ?Taking onrz-fsz-wvsrnlv medicines, vitamins, herbs, and supplements. You may be told to take a medicine to help you relax (sedative) a few hours before the procedure. General instructions Do not use any products that contain nicotine or tobacco for at least 4 weeks before the procedure.These products include cigarettes, e-cigarettes, and chewing tobacco. If you need help quitting, ask your health care provider. Plan to have a responsible adult take you home from the hospital or clinic. If you will be going home right after the procedure, plan to have a responsible adult care for you for the time you are told. This is important. Ask your health care provider: ?How your surgery site will be marked. ?What steps will be taken to help prevent infection. These steps may include: ?Removing hair at the surgery site. ?Washing skin with a germ-killing soap. ?Taking antibiotic medicine. What happens during the procedure? You will be given one or more of the following: ?A sedative, unless you were told to take this a few hours before the procedure. ?A medicine to numb the area (local anesthetic). Your health care provider will feel, or palpate, for your vas deferens. To reach the vas deferens, one of two methods may be used: ?A very small incision may be made in your scrotum. ?A punctured opening may be made in your scrotum, without an incision. Your vas deferens will be pulled out of your scrotum and cut. Then, the vas deferens will be closedin one of two ways: ?Tied at the ends. ?Cauterized at the ends to seal them off. The vas deferens will be put back into your scrotum. The incision or puncture opening will be closed with absorbable stitches (sutures). The sutures will eventually dissolve and will not need to be removed after the procedure. The procedure will be repeated on the other side of your scrotum. The procedure may vary among health care providers and hospitals. What happens after the procedure? You will be monitored to make sure that you do not have problems. You will be asked not to ejaculate for at least 1 week after the procedure, or for as long as you are told. You will need to use a different form of contraception for 2 4 months after the procedure, until you have test results confirming that there are no sperm in your semen. You may be given scrotal support to wear, such as a jockstrap or underwear with a supportive pouch. If you were given a sedative during the procedure, it can affect you for several hours. Do not drive or operate machinery until your health care provider says that it is safe. Summary Vasectomy blocks sperm from being released during ejaculation. This procedure is considered a permanent and very effective form of control. Your scrotum will be numbed with medicine (local anesthetic) for the procedure. After the procedure, you will be asked not to ejaculate for at least 1 week, or for as long as you are told. You will also need to use a different form of contraception until your test results confirm that there are no sperm in your semen. This information is not intended to replace advice given to you by your health care provider. Make sure you discuss any questions you have with your health care provider. Document Revised: 08/05/2020 Document Reviewed: 08/05/2020 [employer] Patient Education 2022 [employer]. Follow Up Care 07/03/2022 10:22:44 With:MODESTA GOMES, Prakash Madison, URL Address: [facility] [address], [place] [id number]- [phone] When: Unknown Comments:schedule vasectomy [facility] 03-08-2023 Evaluation note* Encounter Date Diagnosis Assessment Notes Treatment Notes Treatment Clinical Notes May, Contact with and (suspected) exposure to other viral communicable diseases (ICD-10 - Z20.828) May, Strep pharyngitis (ICD-10 - J02.0) Strep throat material was printed Drink plenty fluids, get plenty of rest. Take the amoxicillin as prescribed until gone. Take Tylenol or Motrin as needed for aches pains or fevers. Consider drinking warm tea with honey for comfort. Off work today and tomorrow. Follow-up with your family physician if no improvement in 2 to 3 days May, Sore throat (ICD-10 - J02.9) [employer] Other 11-28-2022 Evaluation note* Encounter Date Diagnosis Assessment Notes Treatment Notes Treatment Clinical Notes Jan, Encntr for general adult medical exam w/o abnormal findings (ICD-10 - Z00.00) Jan, Other No change today...Continue as is...FU PRN/Yearly... [employer] Other 04-25-2022 Evaluation note* Encounter Date Diagnosis Assessment Notes Treatment Notes Treatment Clinical Notes Jul, Athlete's foot on left (ICD-10 - B35.3) eRX sent. Pt to call with update. Discussed with patient that this actually looks more eczematous than athlete's foot in nature. [employer] Other 11-22-2021 Evaluation note* Encounter Date Diagnosis Assessment Notes Treatment Notes Treatment Clinical Notes Jan, Acute sinusitis, unspecified (ICD-10 - J01.90) E Rx sent. Patient to call if no improvement seen. Jan, Encounter for general adult medical examination with abnormal findings (ICD-10 - Z00.01) His routine screening paperwork is completed today. [employer] Other 12-01-2020 History general Narrative - Reported* Type Description Date Medical History Gastroesophageal ref lux disease, esophagitis presence not specified Medical History COVID - 03/2020 Surgical History Oral Surgery 2014 Hospitalization History Sinus Infection 2003 [employer] Other Evaluation + Plan note Future Appointments Appointment Date:01/05/2023 08:30:00 AM Scheduled Provider:Prakash IRAHETA MD Location:[facility] Appointment Type:URO Office Visit [facility] evaluation noteNo InformationNort [employer] Other Evaluation noteNo assessment information available [facility] Work Phone: evaluation note* Diagnosis Onset Date Resolution Status BMI over 35 acute Gastroesophageal reflux disease without esophagitis acute Reactive depression acute Sleep apnea noneactive [facility] Work Phone: Evaluation note* Diagnosis Onset Date Resolution Status BMI over 35 acute Gastroesophageal reflux disease without esophagitis acute Reactive depression acute Shift work sleep disorder ac fernanda Sleep apnea noneactive [facility] Work Phone: Evaluation note* Diagnosis Onset Date Resolution Status BMI over 35 acute Gastroesophageal reflux disease without esophagitis acute Reactive depression acute Shift work sleep disorder ac fernanda Sleep apnea noneactive BMI over 35 acute Sleep apnea noneactive [facility] Work Phone: Evaluation note* Diagnosis Onset Date Resolution Status BMI over 35 acute Gastroesophageal reflux disease without esophagitis acute Shift work sleep disorder ac fernanda Sleep apnea noneactive [facility] Work Phone: Evaluation note* Diagnosis Onset Date Resolution Status Admit Date Reactive depression acute August 012024 8:55am [facility] Work Phone: Hospital course Narrative No data available for this section [facility] Hospital Discharge instructions No data available for this section [facility] No data available for this section [facility] Summary Purpose Family History No Family History Records Found No data available for this section No data available for this section No Family History Records FoundNo Family History Records Found Advance Directives No Advanced Directives Records Found Advance Directive Response Recorded Date/ Time Advance Directives No March 04, 2018 12:59pm Chief Complaint and Reason for Visit Chief Complaint 6 Month Follow Up Amb Documentation r06.83 fatigue Reason for Visit BMI over 35 Gastroesophageal reflux disease without esophagitis Reactive depression Sleep apnea Chief Complaint 6 Month Follow Up Amb Documentation r06.83 fatigue HST arriving at 0730 Reason for Visit BMI over 35 Gastroesophageal reflux disease without esophagitis Reactive depression Shift work sleep disorder Sleep apnea Chief Complaint Amb Documentation r06.83 fatigue HST arriving at 0730 HST arriving at 0730 3 month Reason for Visit BMI over 35 Gastroesophageal reflux disease without esophagitis Reactive depression Shift work sleep disorder Sleep apnea BMI over 35 Sleep apnea Chief Complaint 31-90 Reason for Visit BMI over 35 Gastroesophageal reflux disease without esophagitis Shift work sleep disorder Sleep apnea Chief Complaint 31-90 6 month Reason for Visit BMI over 35 Gastroesophageal reflux disease without esophagitis Shift work sleep disorder Sleep apnea Chief Complaint Admit Date 6 month August 01, 2024 8:55am Reason for Visit Admit Date Reactive depression August 01, 2024 8:55am Additional Source Comments (unrecognized sect ion and content) No Status Records FoundNo Status Records FoundNo Status Records Found INFORMATION SOURCE (unrecogn ized section and content) DATE CREATED AUTHOR 09/25/2017 [facility] DATE CREATED AUTHOR AUTHOR'S ORGANIZ ATION 08/20/2023 [facility] DATE CREATED AUTHOR AUTHOR'S ORGANIZ ATION 09/02/2024 [facility] REASON FOR VISIT (unrecogniz ed section and content) congestion, drainage, sore t hroat, cough x2 days *IN LAB* per SMR, pt. states it is the same sinus infection I always get athletes footBiometric screeningCOUGH, CONGESTION, BODYACHES, SORE THROATUrgent Care FYImental health issuesrefill lexapro4 week follow upCall back requestrefill wellbutrionincrease lexapro requestrefill lexaproClinical Acute Illness6 month Follow upSleep Lab referrallabsrefill lexapro Patient Care team informatio n (unrecognized section and content) Team Status: Active Member Role Status Dates Aftab Jacobo DO Primary Care Provider Active Team Status: Inactive Member Role Status Dates Aftab Jacobo DO Primary Care Provider Active Start: November 29, 2023 End: November 29, 2023 Kristy Thrasher NP Attending Provider Active Start: November 29, 2023 End: November 29, 2023 Team Status: Active Member Role Status Dates Aftab Jacobo DO Primary Care Provider Active Start: May 29, 2023 Melissa Khan LPN Attending Provider Active S tart: May 29, 2023 Team Status: Inactive Member Role Status Dates Alon Montoya MD Attending Provider Active S tart: July 19, 2023 End: July 19, 2023 Aftab Jacobo DO Primary Care Provid er, Referring Provider Active Start: July 19, 2023 End: July 19, 2023 Team Status: Inactive Member Role Status Dates Aftab Jacobo DO Primary Care Provider Active Start: July 26, 2023 End: July 26, 2023 Alon Montoya MD Attending Provider Active S tart: July 26, 2023 End: July 26, 2023 Team Status: Active Member Role Status Dates Aftab Jacobo DO Primary Care Provider Active Start: July 31, 2023 Alon Montoya MD Attending Provider, Other Provider Active Start: July 31, 2023 Team Status: Inactive Member Role Status Dates Aftab Jacobo DO Primary Care Provid er, Attending Provider Active Start: August 03, 2023 End: August 03, 2023 Team Status: Inactive Member Role Status Dates Prakash Iraheta MD Attending Provider Active Team Status: Inactive Member Role Status Dates Aftab Jacobo DO Attending Provider Active S tart: May 04, 2023 End: May 04, 2023 Team Status: Active Member Role Status Dates Aftab Jacobo DO Primary Care Provid er, Attending Provider Active Start: May 07, 2023 Team Status: Inactive Member Role Status Dates Aftab Jacobo DO Primary Care Provid er, Attending Provider Active Start: February 01, 2024 End: February 01, 2024 Team Status: Inactive Member Role Status Dates Aftab Dane Jacobo DO Primary Care Provid er, Attending Provider Active Start: August 01, 2024 End: August 01, 2024 Goals (unrecognized section and content) Goals may be documented in a n alternate section FOR RECORDS PERTAINING TO PATIENTS WHO ARE OR HAVE BEEN ENROLLED IN A CHEMICAL DEPENDENCY/SUBSTANCEABUSE PROGRAM, SOME INFORMATION MAY BE OMITTED. This clinical summary was aggregated from multiple sources. Caution should be exercised in using it in the provision of clinical care. This summary normalizes information from multiple sources, and as a consequence, information in this document may materially change the coding, format and clinical context of patient data. In addition, data may be omitted in some cases. CLINICAL DECISIONS SHOULD BE BASED ON THE PRIMARY CLINICAL RECORDS. [facility] [employer] provides no warranty or guarantee of the accuracy or completeness of information in this document.
== END 2024-09-04 12:51 | disposition home or self-care (01) ==
LOC: US 12:52
PROVIDERS: Family Provider Family Medicine; PCP Family Medicine; Visit Provider Physician Assistant
DX: N50.819 Testicular pain, unspecified (principal); N50.89 Other specified disorders of the male genital organs; N50.3 Cyst of epididymis
CPT/HCPCS: 76870